=== PATIENT | female | born 1980 | race African-American/Black ===

== ENCOUNTER 2021-06-03 13:34 | Emergency (ER) | payer OTHER ==
[~2021-06-03] VITALS: Ht 157.5 cm; Wt 72.6 kg
[2021-06-03 14:01] LABS: URINE BILIRUBIN NEGATIVE (Negative); URINE BLOOD NEGATIVE (Negative); URINE CLARITY CLEAR; URINE COLOR YELLOW; URINE GLUCOSE-RANDOM* NEGATIVE (Negative); URINE KETONES NEGATIVE (Negative); URINE LEUKOCYTES-REFLEX NEGATIVE (Negative); URINE NITRITE-REFLEX NEGATIVE (Negative); URINE PROTEIN (DIPSTICK) NEGATIVE (Negative); URINE SPECIFIC GRAVITY 1.015 (1.005-1.035); URINE UROBILINOGEN 0.2 E.U./dl (0.2-1.0)
[2021-06-03 14:44] LABS: ABSOLUTE NEUTROPHILS 5.5 thou/uL (1.4-8.2); BASOPHILS 0.5 % (0.0-2.0); EOSINOPHILS 1.3 % (0.0-3.0); HEMATOCRIT 42.2 % (37.0-47.0); HEMOGLOBIN 13.7 gm/dL (12.0-15.0); LYMPHOCYTES 19.4 % (24.0-44.0); MCH 29.4 pg (26.0-34.0); MCHC 32.4 g/dL (28.0-37.0); PLATELET COUNT 416 thou/uL (150-400); POLYS 68.8 % (36.0-66.0); RBC 4.64 mil/uL (4.20-5.00); RDW 12.7 % (10.5-14.5)
[2021-06-03 15:02] LABS: CALCIUM 9.3 mg/dL (8.5-10.1); CREATININE 0.9 mg/dL (0.6-1.0); POTASSIUM 4.1 mmol/L (3.5-5.1)
[2021-06-03 15:06] LABS: ALBUMIN 3.4 g/dL (3.4-5.0); TOTAL BILIRUBIN 0.6 mg/dL (0.2-1.0); TOTAL PROTEIN 7.9 g/dL (6.4-8.2)
[2021-06-03] MEDS ORDERED: ZOFRAN ODT4 MG PO (17:06)
[2021-06-03] MEDS ORDERED: MIRALAX119 GM PO (17:06)
[2021-06-03 17:07] VITALS: BP 130/92
== END 2021-06-03 17:07 | disposition home or self-care (01) ==
LOC: ER 13:34
PROVIDERS: Emergency Medicine
DX: K59.00 Constipation, unspecified (principal); R14.0 Abdominal distension (gaseous); J45.909 Unspecified asthma, uncomplicated